=== PATIENT | male | born 1975 | race Caucasian/White ===

== ENCOUNTER 2023-07-26 20:04 | Emergency (ER) | payer OTHER, SELFPAY ==
[2023-07-26] VITALS (21 sets, daily range): BP systolic 118–153; BP diastolic 72–107; PULSE 64–90; RESP 10–21; TEMP 36.2–36.7; O2SAT 94–999; BMI 30.7
--- NOTE | 2023-07-26 20:18 | EKG12_ITS ---
Test Reason : CP Blood Pressure : / mmHG Vent. Rate : 069 BPM Atrial Rate : 069 BPM P-R Int : 170 ms QRS Dur : 112 ms QT Int : 416 ms P-R-T Axes : 059 -06 040 degrees QTc Int : 445 ms Normal sinus rhythm Incomplete right bundle branch block Borderline ECG Confirmed by CAMACHO SNOW, MALORIE ([id number]), publishing editor LEO CAREY ([id number]) on 07/27/2023 8:02:26 AM Referred By: KIM Confirmed By:MALORIE SAUER MD
--- NOTE | 2023-07-26 20:20 | RAD_ITS ---
INDICATION: chest pain EXAMINATION/TECHNIQUE: X-RAY - XR Chest 1 View COMPARISON: None. Findings: Single frontal view of the chest. LUNG PARENCHYMA: No acute focal airspace disease or mass lesion. PLEURA: No pleural effusion. No pneumothorax. HEART/GREAT VESSELS: Cardiomediastinal silhouette is unremarkable. BONES: Osseous structures are unremarkable for age. RAD/Chest 1 View (Portable) IMPRESSION: Chest with no acute disease. Electronically Signed: Onur Valdes MD at 21:35 EDT ,
[2023-07-26] MEDS: Aspirin 81 MG TAB.CHEW 324 MG PO (20:24)
--- NOTE | 2023-07-26 20:55 | EDS_ITS ---
HPI History of Present Illness Chief Complaint: Chest Pain Narrative Narrative: 47-year-old male presenting with nausea and dizziness. He states he was sitting at home and started to feel like he was spinning and lightheaded. Patient states he felt nauseous and had some epigastric burning. He got up to walk and felt more dizzy. He states he has some chest discomfort but it feels more like burning. No history of GERD. He states he has not eaten anything since lunch and states he had a salad. Patient has no history of GERD. No history of heart or lung disease. Patient states she does not see a doctor on a regular basis and has not been seen since 2016. Patient has never had a stress test. No history of DVT/PE and no risk factors. PFSH PFSH Medical History no medical history Home Medications NK 08/17/20 [History Last Taken Unknown] Allergy/AdvReac Type Severity Reaction Status Date / Time No Known Allergies Allergy Verified 07/26/23 20:22 Surgical History no surgical history Social History Smoking Status: Never smoker ROS ROS ED Constitutional Constitutional ED: Denies chills, fever(s) or sweats Eyes Eyes: Reports other Details: Vertiginous dizziness ; Denies blurry vision or change in vision ENT ENT ED: Denies ear pain or sore throat Cardiovascular Cardiovascular: Reports chest pain; Denies palpitations or racing heartbeat Respiratory/Chest Respiratory/Chest: Denies cough, dyspnea or sputum Gastrointestinal Gastrointestinal: Reports nausea and other Details: Dyspepsia ; Denies abdominal pain, constipation, diarrhea or vomiting Genitourinary Genitourinary ED: Denies dysuria, hematuria or urinary frequency Musculoskeletal Musculoskeletal: Denies arthralgias, myalgias or neck pain Integumentary Denies abscess, Abrasions or rash Neurologic Neurologic: Denies headache(s), paresthesias or weakness Psychiatric Psychiatric: Denies anxiety, depression, suicidal ideation or suicidal thoughts Endocrine Endocrinology: Denies polydipsia or polyuria EXAM Physical Exam Const Vital Signs: 07/26/23 20:05 07/26/23 20:07 07/26/23 20:05 Temperature 97.1 F L Temperature Source Temporal Pulse Rate 71 68 Respiratory Rate 19 H 17 Respiratory Effort Normal Blood Pressure 153/107 H 153/107 H Blood Pressure Mean 122 122 Pulse Ox 99 100 Oxygen Delivery Method Room Air Room Air 07/26/23 20:21 07/26/23 21:05 07/26/23 21:17 Temperature Temperature Source Pulse Rate 72 69 Respiratory Rate 16 16 Respiratory Effort Blood Pressure 133/88 H Blood Pressure Mean 103 Pulse Ox 97 999 99 Oxygen Delivery Method Room Air Room Air 07/26/23 21:19 07/26/23 21:20 07/26/23 21:30 Temperature Temperature Source Pulse Rate 68 64 65 Respiratory Rate 19 H 16 15 Respiratory Effort Blood Pressure 130/92 H 130/90 H Blood Pressure Mean 104 104 Pulse Ox 99 100 99 Oxygen Delivery Method Room Air 07/26/23 21:40 07/26/23 21:45 07/26/23 21:50 Temperature Temperature Source Pulse Rate 73 71 Respiratory Rate 15 16 Respiratory Effort Blood Pressure 134/89 H Blood Pressure Mean 102 Pulse Ox 100 97 Oxygen Delivery Method Room Air 07/26/23 22:00 07/26/23 22:10 07/26/23 22:15 Temperature Temperature Source Pulse Rate 71 88 90 Respiratory Rate 16 17 21 H Respiratory Effort Blood Pressure 140/88 H 118/84 H Blood Pressure Mean 99 96 Pulse Ox 95 96 Oxygen Delivery Method Room Air Room Air 07/26/23 22:20 07/26/23 22:30 07/26/23 22:40 Temperature Temperature Source Pulse Rate 88 81 Respiratory Rate 19 H 10 L Respiratory Effort Blood Pressure 122/81 H Blood Pressure Mean 93 Pulse Ox 97 96 Oxygen Delivery Method Room Air 07/26/23 22:45 07/26/23 22:50 07/26/23 23:00 Temperature Temperature Source Pulse Rate 82 82 84 Respiratory Rate 17 16 16 Respiratory Effort Blood Pressure 120/85 H 119/83 H Blood Pressure Mean 96 93 Pulse Ox 94 95 95 Oxygen Delivery Method Room Air 07/26/23 23:10 Temperature Temperature Source Pulse Rate 77 Respiratory Rate 15 Respiratory Effort Blood Pressure Blood Pressure Mean Pulse Ox 95 Oxygen Delivery Method Positive well nourished General Appearance ED: NAD; Negative for pallor HEENT Reports moist mucous membranes HEENT Narrative: Positive [place] bilaterally. Eyes PERRL and EOMs intact bilaterally Chest Wall inspection of chest normal Resp normal respiratory effort and clear to auscultation bilaterally Auscultation: Negative for rales, rhonchi or wheezes Cardio regular rate and regular rhythm GI normal to inspection, nondistended, normoactive bowel sounds Neuro oriented x3 and CN's II-XII intact bilaterally Sensorium / Orientation: alert Psych mental status grossly normal Skin no rashes or lesions noted General Skin Exam: Negative for jaundice or pallor MDM MDM MDM Narrative Medical decision making narrative: Patient presented with dizziness and nausea. Positive was Hallpike bilaterally. He is concerned because he having chest discomfort. Differential includes vertigo, ACS, GERD, dyspepsia, dehydration, anemia, electrolyte abnormalities. CBC obtained to assess white blood cell count, hemoglobin, platelets. BMP to assess renal function electrolytes, glucose. High-sensitivity troponin EKG to assess for ischemia/arrhythmia. Chest x-ray rule out pneumonia. Patient PERC negative and I no concern for PE. CBC shows leukocytosis of 13.9. Hemoglobin 15.4. Platelets 2 6. Renal function electrolytes within normal limits. High- sensitivity troponin is 7. EKG on my interpretation shows a normal sinus rhythm with a ventricular rate of 69 bpm without sign of ischemic change. Patient initially treated with meclizine and Phenergan to get his dizziness and nausea under control. Reevaluation at 11:05 PM the patient is doing much better. He states he is able ambulate to the bathroom and his nausea is better. He does feel little bit sleepy from medication. Delta troponin came back at 6. No significant interval change since patient is feeling better we will send him home on meclizine. Return precautions discussed. Impression: 1. Atypical chest pain 2. Vertigo Lab Data Labs: Laboratory Results - last 24 hr 07/26/23 07/26/23 20:08 22:09 WBC 13.9 H RBC 5.41 Hgb 15.4 Hct 44.9 MCV 83.0 MCH 28.5 MCHC 34.3 RDW Std Deviation 38.4 RDW Coeff of Rosaline 13.0 Plt Count 296 MPV 9.5 Immature Gran % (Auto) 0.400 Neut % (Auto) 77.0 H Lymph % (Auto) 15.3 L [place] % (Auto) 6.3 Eos % (Auto) 0.7 Baso % (Auto) 0.3 Absolute Neuts (auto) 10.7 H Absolute Lymphs (auto) 2.13 Nucleated RBC % 0 Sodium 137 Potassium 3.8 Chloride 103 Carbon Dioxide 27.0 Anion Gap 7 BUN 23 H Creatinine 1.05 Estim Creat Clear Calc 99.57 Est GFR (MDRD) Af Amer 96 Est GFR (MDRD) Non-Af 80 BUN/Creatinine Ratio 21.9 H Glucose 103 Calcium 9.3 Troponin I High Sens 7 6 Radiography Diagnostic Testing: Clinical Impression(s) from Imaging Studies Chest X-Ray 07/26/23 20:20 IMPRESSION: Chest with no acute disease. Electronically Signed: Onur Valdes MD at 21:35 EDT , Discharge Plan Triage Chief Complaint: Chest Pain ED Provider: Tuan Amato Dx/Rx/DC Orders Instructions: ED Chest Pain, Noncardiac, ED Vertigo, Unspecified Prescriptions: No Action NK Primary Care Provider: Humberto Cruz Referrals: Humberto Cruz, [Primary Care Provider] - Disposition Disposition: Home, Self Care
[2023-07-26] MEDS: Meclizine HCl 25 MG Tablet PO (21:00)
[2023-07-26 21:01] LABS: Absolute Lymphocyte Count 2.13 X10^3/uL (0.83-4.51); Absolute Neutrophil Count 10.7 X10^3/uL (2.0-7.7); Basophil# 0.04 X10^3/uL; Basophil% 0.3 % (0-1); Eosinophils% 0.7 % (0-5); Hematocrit 44.9 % (40-54); Hemoglobin 15.4 g/dL (13.0-16.5); Lymphocyte # 2.13 X10^3/ul (0.83-4.51); Lymphocyte % 15.3 % (19-41); Mean Corp Hgb Conc 34.3 g/dL (32-36); Mean Corpuscular Hgb 28.5 pg (27.0-32.0); Mean Platelet Vol. 9.5 fl (6.2-12.0); Monocyte# 0.88 X10^3/uL; Monocyte% 6.3 % (0-10); NRBC Flagged by Analyzer 0 % (0-5); Neutrophil # 10.71 X10^3/uL (2.7-7.7); Platelet Count 296 K/mm3 (150-450); RBC Distribution Width SD 38.4 fl (35.1-43.9); Red Blood Count 5.41 M/mm3 (4.6-6.2); White Blood Count 13.9 K/mm3 (4.4-11.0)
[2023-07-26] MEDS: proMETHazine 25 MG/ML Syringe 12.5 MG IM (21:01)
[2023-07-26 21:07] LABS: Anion Gap 7 (5-15); BUN 23 mg/dL (7-18); BUN/Creat Ratio 21.9 RATIO (10-20); Calcium,Total 9.3 mg/dL (8.5-10.1); Chloride 103 mmol/L (98-107); Creatinine, Serum 1.05 mg/dL (0.70-1.30); EST Glomerular Filtration Rate 80 mL/min (>60); Est Glom Filt Rate - Afr Amer 96 mL/min (>60); Estimated Creatinine Clearance 99.57 ml/min; Glucose 103 mg/dL (74-106); Potassium 3.8 mmol/L (3.5-5.1); Sodium Level 137 mmol/L (136-145); Troponin-I HS (w/2H Reflex) 7 pg/mL (3.0-78.0)
[2023-07-26 22:43] LABS: Reflex Troponin-HS? (from REC) Y
[2023-07-26 23:07] LABS: Troponin-I HS 6 pg/mL (3.0-78.0)
== END 2023-07-26 23:40 | disposition home or self-care (01) ==
PROVIDERS: Emergency Provider Student in an Organized Health Care Education/Training Program; PCP Family Medicine; Visit Provider Student in an Organized Health Care Education/Training Program
DX: R07.89 Other chest pain (principal); R42 Dizziness and giddiness
CPT/HCPCS: 71045; 80048; 84484; 85025; 93005; 96372; 99285; J7040; A4216

== ENCOUNTER → 2025-02-06 | Outpatient (CLI) | payer OTHER, SELFPAY ==
[2025-02-06 10:22] LABS: Hematocrit 41.6 % (40-54); Hemoglobin 13.7 g/dL (13.0-16.5); Immature Granulocytes Count 0.020 X10^3/uL (0.0-0.0); Mean Corp Hgb Conc 32.9 g/dL (32-36); Mean Corpuscular Volume 84.7 fL (80-94); Mean Platelet Vol. 9.5 fl (6.2-12.0); NRBC Flagged by Analyzer 0 % (0-5); Platelet Count 261 K/mm3 (150-450); RBC Distribution Width CV 12.8 % (11.6-14.6); RBC Distribution Width SD 39.3 fl (35.1-43.9); Red Blood Count 4.91 M/mm3 (4.6-6.2); White Blood Count 6.3 K/mm3 (4.4-11.0)
[2025-02-06 11:16] LABS: AST(SGOT) 21 U/L (<=37); Alanine Aminotransfer ALT/SGPT 20 U/L (<=46); Albumin, Serum 4.4 g/dL (3.5-5.0); Alkaline Phosphatase 58 U/L (40-129); Anion Gap 10 (5-15); BUN 15 mg/dL (4-19); BUN/Creat Ratio 14.9 RATIO (10-20); Calcium,Total 9.4 mg/dL (7.6-11.0); Carbon Dioxide 27.4 mmol/L (21.0-32.0); Chloride 103 mmol/L (98-108); Cholesterol 170 mg/dL (<=200); Globulin 2.3 g/dL (2.2-4.2); Glucose 97 mg/dL (70-99); Low Density Lipoprotein Calc. 100 mg/dL; PSA,Total - Annual Screen 1.94 ng/mL (0.02-4.00); Potassium 4.3 mmol/L (3.3-5.1); Triglycerides 72 mg/dL; Very Low Density Lipoprotein 14 mg/dL (5-40); cholesterol:hdl ratio screen 3.03
== END | disposition home or self-care (01) ==
LOC: MTLAB 08:52
PROVIDERS: PCP Family Medicine; Referring Provider Nurse Practitioner Family; Visit Provider Nurse Practitioner Family
DX: Z00.01 Encounter for general adult medical examination with abnormal findings (principal); Z12.5 Encounter for screening for malignant neoplasm of prostate
CPT/HCPCS: 36415; 80053; 80061; 84153; 85025; G0103